=== PATIENT | female | born 1980 | race Caucasian/White ===

== ENCOUNTER 2017-06-21 13:10 | Emergency (ER) | payer OTHER ==
[~2017-06-21] VITALS: Ht 157.5 cm; Wt 68.0 kg
[2017-06-21 13:29] LABS: *BILIRUBIN,URIN NEGATIVE (NEGATIVE); *BLOOD, URINE Trace-lysed (NEGATIVE); *CLARITY,URINE CLEAR (CLEAR); *COLOR,URINE YELLOW (YELLOW); *KETONES,URINE NEGATIVE (NEGATIVE); *PROTEIN,URINE TRACE (NEGATIVE); *UROBILINOGEN,URINE 0.2 E.U./dl (NORMAL); LEUKOCYTE ESTERASE ,URINE NEGATIVE (NEGATIVE); NITRITE, URINE NEGATIVE (NEGATIVE); UGLUCOSE NEGATIVE (NEGATIVE)
[2017-06-21 13:31] LABS: *URINE HCG, QUAL NEGATIVE (NEGATIVE)
[2017-06-21 13:35] LABS: BACTERIA,URINE FEW /HPF (NONE SEEN); RBC,URINE 0-3 /HPF (0-3); SQUAMOUS EPITHELIAL CELL,UR MODERATE /HPF (NONE SEEN)
--- NOTE | 2017-06-21 14:10 | NUR ---
Patient does not wish to proceed with medical care recommended by Dr. Shannon quintana ). Patient given information related to possible complications, up to and including , which could occur as a result of leaving the hospital at this time. Patient verbalizes understanding of risks involved due to leaving against medical advice. Patient has signed AMA form. Addendum: 06/21/17 at 1434 by CRISTINA pt says has appt with own pmd and will follow up with her own pmd.
== END 2017-06-21 14:10 | disposition left against medical advice (07) ==
LOC: ER 13:10
DX: R10.2 Pelvic and perineal pain (principal); R30.0 Dysuria; K21.9 Gastro-esophageal reflux disease without esophagitis; Z53.29 Procedure and treatment not carried out because of patient's decision for other reasons
CPT/HCPCS: 84703; 87086; A4663